=== PATIENT | male | born 1990 | race Caucasian/White ===

== ENCOUNTER 2019-04-22 12:51 | Emergency (ER) | payer BC ==
[~2019-04-22] VITALS: Ht 175.3 cm; Wt 93.9 kg
[2019-04-22] MEDS ORDERED: SODIUM CHLORIDE 0.9% 1000ML 1,000 ML ONE (13:11)
[2019-04-22] MEDS ORDERED: SODIUM CHLORIDE 0.9% 1000ML 1,000 ML IV SCH (13:15)
[2019-04-22 13:37] LABS: BASOPHILS # (AUTO) 0.1 (0.0-0.1); BASOPHILS % 0.7 % (0.0-1.0); EOSINOPHILS # (AUTO) 0.1 (0.0-0.4); EOSINOPHILS % 1.1 % (0.0-6.0); HEMATOCRIT 44.3 % (38.2-49.6); HEMOGLOBIN 14.9 g/dL (14.0-18.0); LYMPHOCYTES # (AUTO) 3.6 (1.0-3.2); MEAN CORPUSCULAR HEMOGLOBIN 29.2 pg (28-32); MEAN CORPUSCULAR HGB CONC 33.6 g/dL (31-35); MEAN CORPUSCULAR VOLUME 86.9 fL (81-99); MONOCYTES # (AUTO) 0.9 (0.2-0.8); MONOCYTES % 7.5 % (4.4-11.3); NEUTROPHILS # (AUTO) 7.5 (2.1-6.9); NEUTROPHILS % 61.5 % (38.7-80.0); PLATELET COUNT 324 x10e3/uL (140-360); RED CELL DISTRIBUTION WIDTH 13.7 % (11.7-14.4)
[2019-04-22 13:54] LABS: ALANINE AMINOTRANSFERASE 23 IU/L (0-55); ALBUMIN 3.7 g/dL (3.5-5.0); ALBUMIN/GLOBULIN RATIO 1.1 (0.8-2.0); ALKALINE PHOSPHATASE 75 IU/L (40-150); ANION GAP 12.7 mmol/L (8-16); BLOOD UREA NITROGEN 11 mg/dL (7-26); BUN/CREATININE RATIO 12 (6-25); CALCIUM 9.6 mg/dL (8.4-10.2); CARBON DIOXIDE 26 mmol/L (22-29); CHLORIDE 104 mmol/L (98-107); CREATININE, SERUM 0.89 mg/dL (0.72-1.25); EST GLOMERULAR FILTRATION RATE > 60 ML/MIN (60-); GLUCOSE 96 mg/dL (74-118); POTASSIUM 3.7 mmol/L (3.5-5.1); SODIUM 139 mmol/L (136-145)
--- NOTE | 2019-04-22 14:09 | Diagnostic Imaging Report ---
EXAM: CT Abdomen and Pelvis WITHOUT intravenous contrast INDICATION: Right flank pain COMPARISON: None. TECHNIQUE: Abdomen and pelvis were scanned utilizing a multidetector helical scanner from the lung base to the pubic symphysis without administration of IV contrast. Coronal and sagittal reformations were obtained. IV CONTRAST: None ORAL CONTRAST: None COMPLICATIONS: None RADIATION DOSE: Total DLP: 760.3 mGy*cm Dose modulation, iterative reconstruction, and/or weight based adjustment of the mA/kV was utilized to reduce the radiation dose to as low as reasonably achievable. FINDINGS: LOWER THORAX: Normal. HEPATOBILIARY: No focal liver lesion. Unremarkable gallbladder. SPLEEN: No splenomegaly. PANCREAS: No focal masses or ductal dilatation. ADRENALS: No adrenal nodules. KIDNEYS/URETERS: There is a 4 mm right distal ureteral calculus just proximal to the ureterovesical junction. Mild distal right hydroureter. No right hydronephrosis. Renal calculi measure 5 mm at the left upper pole, 4 mm at the left mid pole, and 3 mm at the right upper pole. No left hydronephrosis or hydroureter. PELVIC ORGANS/BLADDER: Unremarkable. PERITONEUM / RETROPERITONEUM: No free air or fluid. LYMPH NODES: No lymphadenopathy. VESSELS: Unremarkable. GI TRACT: No abnormal bowel wall thickening. No bowel obstruction. BONES AND SOFT TISSUES: Unremarkable. IMPRESSION: 4 mm right distal ureteral calculus just proximal to the ureterovesical junction. Mild associated distal right hydroureter. No right hydronephrosis. Other renal calculi measure up to 5 mm at the left upper pole and up to 3 mm at the right upper pole. No left hydronephrosis or hydroureter. Signed by: Mavis Kerr MD on 04/22/2019 2:05 PM
[2019-04-22 14:19] LABS: MAGNESIUM 1.9 MG/DL (1.3-2.1)
[2019-04-22 14:32] VITALS: BP 113/64
[2019-04-22] MEDS ORDERED: ZOFRAN4 MG SL (14:33)
[2019-04-22] MEDS ORDERED: FLOMAX0.4 MG PO (14:33)
[2019-04-22] MEDS ORDERED: TYLENOL WITH C1 EACH PO (14:33)
== END 2019-04-22 14:39 | disposition home or self-care (01) ==
LOC: EDSEX 12:51 → ER 12:51
DX: M54.5 Low back pain (principal); R11.0 Nausea; R31.9 Hematuria, unspecified; R10.30 Lower abdominal pain, unspecified; N20.1 Calculus of ureter
CPT/HCPCS: 36415; 74176; 80053; 82550; 83735; 85025; 99284; J7030